=== PATIENT | male | born 2000 | race Caucasian/White ===

== ENCOUNTER 2019-08-30 16:59 | Emergency (ER) | payer OTHER ==
[~2019-08-30] VITALS: Ht 177.8 cm; Wt 81.0 kg
[2019-08-30] MEDS ORDERED: predniSONE 20 mg tablet PO ONE (17:30)
[2019-08-30] MEDS ORDERED: ipratropium/albuterol 3ml nebule NEB ONE (17:30)
[2019-08-30] MEDS ORDERED: ALBU8.5H8 INH (18:01)
[2019-08-30] MEDS ORDERED: PRED20TA PO (18:01)
[2019-08-30 18:13] VITALS: BP 131/73
== END 2019-08-30 18:15 | disposition home or self-care (01) ==
LOC: ER 16:59
DX: J45.909 Unspecified asthma, uncomplicated (principal); Z79.899 Other long term (current) drug therapy
CPT/HCPCS: 71046; 93005; 94640; 99283; J7512

== ENCOUNTER 2022-10-06 20:36 | Emergency (ER) | payer OTHER ==
[~2022-10-06] VITALS: Ht 180.3 cm; Wt 80.3 kg
[~2022-10-06 20:36] MED LIST: ALBU8.5H17 INH
[2022-10-06 20:41] VITALS: BP 135/61
[2022-10-06] MEDS ORDERED: proparacaine 0.5% ophthalmic drops 15ml EACHEYE ONE (21:05)
[2022-10-06] MEDS ORDERED: erythromycin ophthalmic ointment 1gm tube RIGHTEYE ONE (21:05)
[2022-10-06] MEDS ORDERED: ERYT1OIN6 RIGHTEYE (21:19)
== END 2022-10-06 21:27 | disposition home or self-care (01) ==
LOC: ER 20:37
DX: H10.9 Unspecified conjunctivitis (principal)
CPT/HCPCS: 99283

== ENCOUNTER 2022-12-31 19:39 | Emergency (ER) | payer OTHER ==
[~2022-12-31] VITALS: Ht 180.3 cm; Wt 86.4 kg
[2022-12-31 19:48] VITALS: BP 176/89
[2022-12-31] MEDS ORDERED: ibuprofen tablet 400 MG TABLET PO ONE (20:30)
[2022-12-31] MEDS ORDERED: azithromycin 250mg tablet PO ONE (20:30)
[2022-12-31] MEDS ORDERED: dexamethasone sod phosphate 10mg/ml inj PO STA (20:30)
[2022-12-31] MEDS ORDERED: AZIT-31 PO (20:35)
[2022-12-31] MEDS ORDERED: IBUP-1986 PO (20:35)
== END 2022-12-31 21:11 | disposition home or self-care (01) ==
LOC: ER 19:39
DX: J03.90 Acute tonsillitis, unspecified (principal)
CPT/HCPCS: 99284; J1100

== ENCOUNTER 2023-09-07 17:00 | Emergency (ER) | payer OTHER ==
[~2023-09-07] VITALS: Ht 180.3 cm; Wt 96.9 kg
[~2023-09-07 17:00] MED LIST changes: +IBUP-1986 PO
[2023-09-07 17:31] LABS: COVID19 ID NOW NEGATIVE (Neg)
[2023-09-07 18:05] VITALS: BP 128/80; PULSE 77; RESP 18; TEMP 97.8; O2SAT 100
== END 2023-09-07 18:10 | disposition home or self-care (01) ==
LOC: ER 17:01
DX: Z11.52 Encounter for screening for COVID-19 (principal); Z20.822 Contact with and (suspected) exposure to COVID-19; Z79.899 Other long term (current) drug therapy
CPT/HCPCS: 87635; 99283; C9803